=== PATIENT | male | born 1995 | race Two or more races ===

== ENCOUNTER 2020-04-23 09:29 | Inpatient (IN) | payer MEDICAID, OTHER ==
[~2020-04-23] VITALS: Ht 167.6 cm; Wt 112.1 kg
[2020-04-23 10:41] LABS: Basophils # (auto) 0.1 10 ^3/uL (0-0.2); Basophils % (auto) 0.5 % (0.0-2.0); Eosinophils # (auto) 0.1 10 ^3/uL (0-0.8); Eosinophils % (auto) 0.7 % (0.0-7.0); Hematocrit 47.2 % (41.0-53.0); Lymphocytes # (auto) 1.8 10 ^3/uL (0.4-5.4); Lymphocytes % (auto) 17.5 % (10.0-50.0); Mean Corpuscular Hgb Conc. 33.9 g/dL (32.0-36.0); Mean Corpuscular Volume 82.6 fL (80.0-100.0); Monocytes # (auto) 0.8 10 ^3/uL (0-1.3); Monocytes % (auto) 7.8 % (0.0-12.0); Neutrophils # (auto) 7.7 10 ^3/uL (1.6-8.6); Neutrophils % (auto) 73.5 % (37.0-80.0); Nucleated Red Blood Cells % 0.1 %; Platelet Count (auto) 331 10^3/uL (140-450); Red Blood Cells 5.72 10^6/uL (4.5-5.90); Red Cell Distribution Width 13.7 % (11.8-14.3); White Blood Cell 10.5 10^3/uL (4.4-10.8)
[2020-04-23] MEDS ORDERED: ASPirin 81 mg TAB PO ONE (10:45)
[2020-04-23 10:55] LABS: Potassium 3.5 mmol/L (3.5-5.1)
[2020-04-23 11:03] LABS: Albumin 4.3 g/dL (3.4-5.0); BUN/Creatinine Ratio 16.8; Bilirubin, Total 0.3 mg/dL (0.2-1.0); Calcium 9.6 mg/dL (8.5-10.1); Total Protein 8.3 g/dL (6.4-8.2)
[2020-04-23] MEDS ORDERED: MORPHINE SULF INJ 2 MG/ML SYRINGE 1ML IV PRN ×2 (12:45)
[2020-04-23] MEDS ORDERED: METOPROLOL TARTRATE 1MG/1ML-5ML VIAL IV PRN (12:45)
[2020-04-23] MEDS ORDERED: NITROGLYCERIN 0.4 MG SL TAB SL PRN (12:45)
[2020-04-23] MEDS ORDERED: ONDANSETRON HCL 4 MG/2 ML VIAL IV PRN (12:45)
[2020-04-23] MEDS: SODIUM CHLORIDE 0.9% 1,000 ML IV SCH (13:23)
[2020-04-23 13:53] LABS: Alcohol, Urine < 3.0 mg/dL (0-10); Amphetamine Screen, Urine NEGATIVE (NEGATIVE); Barbiturate Scree,Urine NEGATIVE (NEGATIVE); Benzodiazephine Screen, Urine NEGATIVE (NEGATIVE); Cannabinoid Screen, Urine NEGATIVE (NEGATIVE); Cocaine Screen, Urine NEGATIVE (NEGATIVE); Opiate Scree,Urine NEGATIVE (NEGATIVE); Phencyclidine Screen, Urine NEGATIVE (NEGATIVE)
--- NOTE | 2020-04-23 21:30 | NUR ---
PATIENT ADMITTED TELE Patient arrived to unit with no s/s of distress and reports no pain or palpitations at this time. Educated patient on POC and to use call light when in need of assistance. Patient was oriented to unit/call light/policies/lights/bathroom. Patient verbalized understanding. Provided patient with water. Bed is in lowest/locked position with side rails up X's 2 and call light is within reach of patient. Will continue care. Tele box 50
[2020-04-23] MEDS: METOPROLOL TARTRATE 25 MG TAB PO SCH (22:45)
[2020-04-24 00:14] VITALS: BP 123/80
[2020-04-24] MEDS ORDERED: MELA3TAB27 PO (00:50)
[2020-04-24] MEDS ORDERED: MULTCAP45 PO (00:50)
[2020-04-24] MEDS: SODIUM CHLORIDE 0.9% 1,000 ML IV SCH ×5 (02:05→23:39)
[2020-04-24 05:00] VITALS: BP 105/66
--- NOTE | 2020-04-24 07:25 | NUR ---
Opening Shift Note Assumed care of patient, awake and alert. No S/S of distress/SOB or pain. Updated on POC and instructed to call for assistance PRN, patient verbalized understanding. Bed locked in lowest position, side rails up x2, call light within reach. Will continue to monitor for changes Q1hr and PRN.
[2020-04-24 07:56] LABS: Potassium 4.2 mmol/L (3.5-5.1)
[2020-04-24 08:15] LABS: Albumin 4.1 g/dL (3.4-5.0); BUN/Creatinine Ratio 14.4; Bilirubin, Total 0.6 mg/dL (0.2-1.0); Calcium 9.3 mg/dL (8.5-10.1); Total Protein 8.2 g/dL (6.4-8.2)
[2020-04-24 09:00] VITALS: BP 124/63
[2020-04-24] MEDS: METOPROLOL TARTRATE 25 MG TAB PO SCH ×2 (09:26→21:27)
[2020-04-24 13:00] VITALS: BP 135/88
[2020-04-24 17:00] VITALS: BP 104/62
--- NOTE | 2020-04-24 19:00 | NUR ---
OPENING NOTE Received report from day shift RN. Patient is A&O X's 4 with no s/s of distress. Patient denies any pain/ SOB or palpitations. Educated patient on POC and to use call light when in need of any assistance. Patient verbalized understanding. Bed is in lowest/locked position with side rails up X's 2 and call light is within reach of patient. Will continue care.
[2020-04-24 22:00] VITALS: BP 108/67
[2020-04-25 05:00] VITALS: BP 95/58
[2020-04-25] MEDS: SODIUM CHLORIDE 0.9% 1,000 ML IV SCH ×2 (05:22→12:45)
[2020-04-25 05:58] LABS: Basophils # (auto) 0.1 10 ^3/uL (0-0.2); Basophils % (auto) 0.6 % (0.0-2.0); Eosinophils # (auto) 0.1 10 ^3/uL (0-0.8); Eosinophils % (auto) 1.6 % (0.0-7.0); Hematocrit 42.5 % (41.0-53.0); Hemoglobin 14.7 g/dL (13.5-17.5); Lymphocytes % (auto) 23.8 % (10.0-50.0); Mean Corpuscular Hemoglobin 28.4 pg (28.0-32.0); Mean Corpuscular Hgb Conc. 34.5 g/dL (32.0-36.0); Mean Corpuscular Volume 82.3 fL (80.0-100.0); Monocytes # (auto) 0.7 10 ^3/uL (0-1.3); Monocytes % (auto) 8.9 % (0.0-12.0); Neutrophils # (auto) 5.3 10 ^3/uL (1.6-8.6); Neutrophils % (auto) 65.1 % (37.0-80.0); Platelet Count (auto) 276 10^3/uL (140-450); Red Blood Cells 5.17 10^6/uL (4.5-5.90); Red Cell Distribution Width 13.8 % (11.8-14.3); White Blood Cell 8.2 10^3/uL (4.4-10.8)
[2020-04-25 06:31] LABS: Albumin 3.7 g/dL (3.4-5.0); Calcium 8.9 mg/dL (8.5-10.1)
[2020-04-25 06:37] LABS: BUN/Creatinine Ratio 15.2; Bilirubin, Total 0.4 mg/dL (0.2-1.0); Total Protein 7.5 g/dL (6.4-8.2)
--- NOTE | 2020-04-25 07:20 | NUR ---
Opening Shift Note Assumed care of patient, awake and alert. Respirations are even and unlabored on room air. No S/S of distress or SOB. Patient updated on POC and instructed to call for assistance as needed, patient verbalized understanding. Bed locked in lowest position, side rails up x 2, call light within reach. Will continue to monitor for changes Q1hr and PRN.
[2020-04-25 09:00] VITALS: BP 114/62
[2020-04-25] MEDS: METOPROLOL TARTRATE 25 MG TAB PO SCH (09:32)
[2020-04-25 13:00] VITALS: BP 113/75
[2020-04-25 16:59] VITALS: BP 113/75
[2020-04-25 17:00] VITALS: BP 133/65
--- NOTE | 2020-04-25 17:40 | NUR ---
DISCHARGE HOME Discharge instructions given as ordered. Encourage to follow up with PMD as instructed. All questions and concerns addressed. Patient verbalized understanding. Medication reconciliation form completed and copy given to patient. IV removed with catheter intact, pressure dressing applied. Telemetry unit returned to ICU. Patient taken to vehicle via wheelchair with all personal belongings, accompanied by staff. No distress noted at time of departure.
== END 2020-04-25 17:10 | disposition home or self-care (01) | DRG 207 ==
LOC: ER 09:29 → TELE 09:30 → TELE-WESTW 21:06
PROVIDERS: ADMIT Internal Medicine; ATTEND Internal Medicine
DX: R00.2 Palpitations (principal); E66.01 Morbid (severe) obesity due to excess calories; Z68.41 Body mass index [BMI] 40.0-44.9, adult; R53.1 Weakness
CPT/HCPCS: 36415; 71045; 80053; 80307; 84484; 85025; 93005; 93306; G0378